=== PATIENT | male | born 1990 | race Caucasian/White ===

== ENCOUNTER 2018-10-15 23:08 | Emergency (ER) | payer BC ==
[~2018-10-15] VITALS: Ht 188 cm; Wt 111.4 kg
[2018-10-15 23:17] VITALS: BP 169/106; PULSE 103; TEMP 98
[2018-10-15] MEDS ORDERED: CEPHALEXIN500 M1 PO (23:47)
== END 2018-10-16 00:13 | disposition home or self-care (01) ==
LOC: COL.ER 23:08
DX: S60.451A Superficial foreign body of left index finger, initial encounter (principal); Z23 Encounter for immunization; F17.210 Nicotine dependence, cigarettes, uncomplicated; W22.8XXA Striking against or struck by other objects, initial encounter